=== PATIENT | male | born 1965 | race Native Hawaiian/Other Pacific Islander ===

== ENCOUNTER 2018-01-01 13:31 | Emergency (ER) | payer OTHER ==
[~2018-01-01] VITALS: Ht 182.9 cm; Wt 90.7 kg
[2018-01-01 15:11] VITALS: BP 136/88; TEMP 97.8
== END 2018-01-01 15:13 | disposition home or self-care (01) ==
LOC: ED 13:31
DX: L25.9 Unspecified contact dermatitis, unspecified cause (principal)
CPT/HCPCS: 99281; J1100